=== PATIENT | female | born 1945 | race Caucasian/White ===

== ENCOUNTER → 2016-11-19 | Outpatient (CLI) | payer MEDICARE, OTHER ==
--- NOTE | 2016-11-19 11:57 | PCVCIMAG ---
APPROVED REPORT Study performed: 11/19/2016 09:51:24 EXAM: Comprehensive 2D, Doppler, and color-flow Echocardiogram Patient Location: Echo lab Status: routine BSA: 1.83 HR: 60 bpmBP: 122/82 mmHg Rhythm: NSR Other Information Study Quality: Good Risk Factors: Cardiac Risk Factors: HTN Indications Mitral Valve Disease Mitral Valve Prolapse Mitral valve regurgitation 2D Dimensions LVEF(%): 52.17 (>50%) IVSd: 10.63 (7-11mm) LVDd: 42.94 mm PWd: 9.84 (7-11mm)Ascending Ao: 32.44 (22-36mm) LVDs: 31.56 (25-40mm) Left Atrium: 38.71 (27-40mm) Aortic Root: 33.19 mm LV Single Plane 4CH: 60.60 % LV Single Plane 2CH: 55.89 %Watt's LVEF: 52.17 % Biplane EF: 56.7 % Volumes Left Atrial Volume (Systole) Single Plane 4CH: 41.00 mLSingle Plane 2CH: 55.73 mL LA ESV Index: 27.00 mL/m2 Aortic Valve AoV [place].: 1.42 m/s AO Peak Gr.: 8.10 mmHgLVOT Max P.80 mmHg LVOT Max V: 0.84 m/s Mitral Valve E/A Ratio: 0.74 MV Decel. Time: 314.31 ms MV E [place].: 0.53 m/s MV A Lake.: 0.72 m/s IVRT: 173.01 ms Pulmonary Valve PV [place].: 0.92 m/sPV Peak Gr.: 3.41 mmHg Pulmonary Vein P Vein S: 0.31 m/sP Vein A: 0.68 m/s P Vein D: 0.64 m/sP Vein A Dur.: 141.9 msec Tricuspid Valve TR [place].: 2.22 m/s TR Peak Gr.: 19.65 mmHg Left Ventricle The left ventricle is normal size. There is normal LV segmental wall motion. There is normal left ventricular wall thickness. Left ventricular systolic function is normal. The left ventricular ejection fraction is within the normal range. LVEF is 55-60%. Grade I - abnormal relaxation pattern. Right Ventricle The right ventricle is normal size. The right ventricular systolic function is normal. Atria The left atrium size is normal. The right atrium size is normal. Aortic Valve The aortic valve is normal in structure. No aortic regurgitation is present. There is no aortic valvular stenosis. Mitral Valve The mitral valve mild propalse ant leaflet Mild mitral regurgitation. No evidence of mitral valve stenosis. There is mild anterior mitral valve prolapse. Tricuspid Valve The tricuspid valve is normal in structure. Mild tricuspid regurgitation with PAP of 27 mmHg. Pulmonic Valve The pulmonary valve is normal in structure. Mild pulmonic regurgitation. Great Vessels The aortic root is normal in size. IVC is normal in size and collapses with >50% inspiration Pericardium There is no pericardial effusion. <Conclusion> The left ventricle is normal size. LVEF is 55-60%. Grade I - abnormal relaxation pattern. The right ventricle is normal size. The left atrium size is normal. The aortic valve is normal in structure. The mitral valve The mitral valve The mitral valve mild propalse ant leaflet Mild mitral regurgitation. Mild tricuspid regurgitation with PAP of 27 mmHg. There is no pericardial effusion.
== END | disposition home or self-care (01) ==
LOC: PCVCIMAG 10:10
PROVIDERS: ATTEND Internal Medicine Cardiovascular Disease
DX: I34.0 Nonrheumatic mitral (valve) insufficiency (principal); I07.1 Rheumatic tricuspid insufficiency; I37.1 Nonrheumatic pulmonary valve insufficiency; I25.10 Atherosclerotic heart disease of native coronary artery without angina pectoris; I10 Essential (primary) hypertension; I49.3 Ventricular premature depolarization; Z85.6 Personal history of leukemia; Z79.82 Long term (current) use of aspirin; Z79.899 Other long term (current) drug therapy
CPT/HCPCS: 80061; 93005; 93306; G0463

== ENCOUNTER → 2017-12-02 | Outpatient (CLI) | payer MEDICARE, OTHER | END | disposition home or self-care (01) | LOC: PCVCCLINIC 10:32 | PROVIDERS: ATTEND Internal Medicine Cardiovascular Disease | DX: I34.1 Nonrheumatic mitral (valve) prolapse (principal); I10 Essential (primary) hypertension; E78.00 Pure hypercholesterolemia, unspecified; I25.10 Atherosclerotic heart disease of native coronary artery without angina pectoris; C91.10 Chronic lymphocytic leukemia of B-cell type not having achieved remission; Z79.899 Other long term (current) drug therapy | CPT/HCPCS: 80061; 93005; G0463 ==

== ENCOUNTER → 2018-12-02 | Outpatient (CLI) | payer MEDICARE, OTHER ==
--- NOTE | 2018-12-02 13:32 | PCVCIMAG ---
APPROVED REPORT Study performed: 12/02/2018 10:02:54 EXAM: Comprehensive 2D, Doppler, and color-flow Echocardiogram Patient Location: Echo lab Room #: 2Status: routine BSA: 1.90 HR: 60 bpmBP: 140/74 mmHg Rhythm: NSR Other Information Study Quality: Good Risk Factors: Cardiac Risk Factors: HTN, Hyperlipidemia Indications Mitral Valve Prolapse CAD 2D Dimensions IVSd: 10.32 (7-11mm)LVOT Diam: 20.00 (18-24mm) LVDd: 45.14 mm PWd: 8.81 (7-11mm)Ascending Ao: 33.82 (22-36mm) LVDs: 32.62 (25-40mm) Left Atrium: 39.04 (27-40mm) Aortic Root: 30.82 mm LV Single Plane 4CH: 52.74 % LV Single Plane 2CH: 66.14 % Biplane EF: 59.3 % Volumes Left Atrial Volume (Systole) Single Plane 4CH: 47.26 mLSingle Plane 2CH: 49.82 mL LA ESV Index: 19.00 mL/m2 Aortic Valve AoV [place].: 1.56 m/s AO Peak Gr.: 9.77 mmHg Mitral Valve E/A Ratio: 1.1 MV Decel. Time: 236.56 ms MV E [place].: 0.84 m/s MV A [place].: 0.75 m/s IVRT: 65.74 ms TDI E/Lateral E': 12.00E/Medial E': 21.00 Medial E' Lake.: 0.04 m/s Lateral E' [place].: 0.07 m/s Pulmonary Valve PV [place].: 0.85 m/sPV Peak Gr.: 2.86 mmHg Pulmonary Vein P Vein S: 0.48 m/sP Vein A: 0.23 m/s P Vein D: 0.51 m/sP Vein A Dur.: 100.3 msec P Vein S/D Ratio: 0.94 Tricuspid Valve TR [place].: 2.19 m/sRAP Estimate: 7.00 mmHg TR Peak Gr.: 19.23 mmHg PA Pressure: 26.00 mmHg Left Ventricle The left ventricle is normal size. There is normal LV segmental wall motion. There is normal left ventricular wall thickness. Left ventricular systolic function is normal. The left ventricular ejection fraction is within the normal range. LVEF is 55-60%. Moderate diastolic dysfunction is present (pseudonormal filling). Right Ventricle The right ventricle is normal size. The right ventricular systolic function is normal. Atria The left atrium size is normal. The right atrium size is normal. Aortic Valve The aortic valve is normal in structure. No aortic regurgitation is present. There is no aortic valvular stenosis. Mitral Valve Mild mitral valve prolapse of the anterior leaflet. Mild mitral regurgitation. No evidence of mitral valve stenosis. Tricuspid Valve The tricuspid valve is normal in structure. Trace tricuspid regurgitation. Pulmonary artery pressure is 26 mmHg. Pulmonic Valve The pulmonary valve is normal in structure. Trace pulmonic regurgitation. Great Vessels The aortic root is normal in size. The ascending aorta is normal in size. IVC is normal in size and collapses >50% with inspiration. Pericardium There is no pericardial effusion. <Conclusion> The left ventricle is normal size. LVEF is 55-60%. Moderate diastolic dysfunction is present (pseudonormal filling). The right ventricle is normal size. The left atrium size is normal. The aortic valve is normal in structure. Mild mitral valve prolapse of the anterior leaflet. Mild mitral regurgitation. Trace tricuspid regurgitation. Pulmonary artery pressure is 26 mmHg. The aortic root is normal in size. There is no pericardial effusion.
== END | disposition home or self-care (01) ==
LOC: PCVCIMAG 09:58
PROVIDERS: ATTEND Internal Medicine Cardiovascular Disease
DX: I34.0 Nonrheumatic mitral (valve) insufficiency (principal); I25.10 Atherosclerotic heart disease of native coronary artery without angina pectoris; E78.00 Pure hypercholesterolemia, unspecified; C91.10 Chronic lymphocytic leukemia of B-cell type not having achieved remission; I10 Essential (primary) hypertension; I38 Endocarditis, valve unspecified; Z79.899 Other long term (current) drug therapy; Z79.82 Long term (current) use of aspirin
CPT/HCPCS: 36415; 80061; 93005; 93306; G0463